=== PATIENT | male | born 1980 | race Native Hawaiian/Other Pacific Islander ===

== ENCOUNTER 2016-08-02 15:09 | Outpatient (CLI) | payer OTHER ==
[~2016-08-02 15:09] MED LIST: A-HYDROCORT100 MG IJ; AMLO2.5T PO; GABA400C2 PO; GLIP10TA55 PO; HYDR5TAB9 PO; LIPITOR20 MG PO; LOFIBRA160 MG PO; METFORMIN ER1000 MG PO; OMEPRAZOLE40 MG PO; SERT100T PO; gemfibrozil PO
== END 2016-08-02 19:25 | disposition home or self-care (01) ==
LOC: RESP 15:09
DX: R56.9 Unspecified convulsions (principal)